=== PATIENT | male | born 1930 | race Caucasian/White ===

== ENCOUNTER 2016-11-07 07:22 | Inpatient (IN) | payer OTHER ==
[~2016-11-07] VITALS: Ht 170.2 cm; Wt 120.2 kg
--- NOTE | ~2016-11-07 | 2DMMODE ---
[facility] [place] [address] 2 D/M-MODE ECHOCARDIOGRAM Name: CHANO FITZGERALD ROSE Room #: 314-P [facility] IN M.R.#: [id number] Admission: 11/08/16 Attend Phys: Willy Laboy Discharge: Date of : [birth year] Date of Service: 11/08/16 1109 Report #: [id number] THIS REPORT FOR: //name// Transthoracic Echocardiography Ordering physician: Mark Ruffin Referring physician: Gregory Malloy Vijay Supervisor Estimator And Drafter: Ronel Brantley Indications/History: Cardiomyopathy. Hx: ISCM, pacemaker,DM, COPD, obesity. BP: 122 / HR: 62bpm Height: 68in Weight: 266.4lb 55 Study data: M-mode, complete 2D, complete spectral Doppler, and color Doppler. Location: Bedside. Routine. Image quality was adequate. The study was technically difficult due to restricted patient mobility and body habitus. The parasternal window was low. 2D measurements Normal Normal LVID ED 56.2mm 36-57 IVS ED 11.6mm 6-11 LVID ES 40.4mm 23-40 LVPW ED 11.9mm 6-11 LA volume 48ml/m2 16-28 AoRoot diam 43.1mm 21-37 index ED LVOT diameter 22mm 18-23 Findings: Left ventricle: The cavity size was normal. Wall thickness was increased in a pattern of mild LVH. Systolic function was normal. The estimated ejection fraction was in the range of 50% to 55%. Wall motion was normal. Right ventricle: The cavity size was severely dilated. Systolic function was reduced. Ventricular septum: Paradoxical motion of septum consistent with a paced rhythm.. Right atrium: The atrium was severely dilated. Pacer wire or catheter noted in right atrium. [facility] [address] [place] [address] 2 D/M-MODE ECHOCARDIOGRAM Name: CHANO FITZGERALD Room #: 314-P [facility] IN M.R.#: [id number] Admission: 11/08/16 Attend Phys: Willy Laboy Discharge: Date of : [birth year] Date of Service: 11/08/16 1109 Report #: [id number] Left atrium: The atrium was severely dilated. Volume index: 48ml/m2 (S). Aortic valve: Mildly sclerotic leaflets. Doppler: There was no stenosis. No regurgitation. Peak velocity: 154.1cm/s (S). Mitral valve: Mildly calcified annulus. Mildly thickened leaflets . Doppler: There was no evidence for stenosis. Moderate regurgitation. Peak E-wave velocity: 112.2cm/s. Peak gradient: 5mm Hg (D). Tricuspid valve: Structurally normal valve. Doppler: There was no evidence for stenosis. Moderate-severe regurgitation. Regurgitant peak velocity: 357cm/s. Peak RV-RA gradient: 51mm Hg (S). Pulmonic valve: Poorly visualized. Doppler: There was no evidence for stenosis. Pericardium: There was no pericardial effusion. Aorta: Aortic root: The aortic root was dilated at the level of the sinuses at 4.3cm. Pulmonary artery: Systolic pressure was estimated to be 65mm Hg. Diastolic function: The study is not technically sufficient to allow evaluation of LV diastolic function due to paced rhythm. Systemic veins: Inferior vena cava: The vessel was severely dilated; respirophasic changes in dimension were absent. Line: Pacemaker leads noted. Conclusions 1. Left ventricle: Systolic function was normal. The estimated ejection fraction was in the range of 50% to 55%. Wall motion was normal. 2. Ventricular septum: Paradoxical motion of septum consistent with a paced rhythm.. 3. Right ventricle: The cavity size was severely dilated. Systolic function was reduced. 4. Aortic valve: Mildly sclerotic leaflets. There was no stenosis. No regurgitation. 5. Mitral valve: Mildly calcified annulus. Mildly thickened leaflets . Moderate regurgitation. 6. Pericardium, extracardiac: There was no pericardial effusion. 7. Pulmonary arteries: Systolic pressure was estimated to be [facility] [address] [place] [address] 2 D/M-MODE ECHOCARDIOGRAM Name: FITZGERALDCHANO Room #: 314-P [facility] IN ..#: [id number] Admission: 11/08/16 Attend Phys: Willy Laboy Discharge: Date of : [birth year] Date of Service: 11/08/16 1109 Report #: [id number] 65mm Hg. 8. Line: Pacemaker leads noted. <ELECTRONICALLY SIGNED> By: Ephraim Mascorro MD, FACC 11/08/16 1206 1109 05 Ephraim Mascorro MD, FACC /[place]
--- NOTE | ~2016-11-07 | H ---
[facility] [place] [address] HISTORY AND PHYSICAL Name: CHANO FITZGERALD Room #: 314-P [facility]..#: [id number] Admission: 11/07/16 Attend Phys: Clayton Romero MD Discharge: Date of : [birth year] Report #: [id number] THIS REPORT FOR: //name// CC: Clayton Guancox monettgoran DATE OF SERVICE: 11/07/2016 CHIEF COMPLAINT: Renal failure and abnormal labwork. HISTORY OF PRESENT ILLNESS: The patient is an 86-year-old male with history of chronic kidney disease stage III, history of ischemic cardiomyopathy, type 2 diabetes, COPD, recent admission at [facility] for cellulitis of the lower extremities, was admitted for abnormal labwork. The patient was discharged on 11/03/2016 to rehab center. The patient was brought in back to [facility] today for an elective angiogram. Lab work showed an elevated creatinine at 2.9. The patient has chronic kidney disease stage III. His creatinine on 11/03/2016 was 1.4. The patient has been taking torsemide and metolazone. At the rehab center, he was also on IV vancomycin through a PICC line for cellulitis of the lower extremities. The patient is sleepy because he had to wake up at 4:00 a.m. and come to the hospital, but he just wakes up and answers questions. He is awake and alert and oriented x 3. He denies any complaint other than pain in his lower extremities. PAST MEDICAL HISTORY: Significant for hypertension, ischemic cardiomyopathy, last EF was 40%. He has a history of chronic lymphedema, diabetes mellitus, cellulitis of the lower extremities, chronic kidney disease, obesity, status post permanent pacemaker, sleep apnea, coronary artery disease, atrial fibrillation, spinal cord stimulator, bladder cancer, history of MRSA infection in the past, urinary incontinence, history of pneumonia in November 2014 and history of acute blood loss anemia in the past. SOCIAL HISTORY: He is a former smoker, no active smoking at present. No alcohol abuse or illicit drug abuse. FAMILY HISTORY: Significant for hypertension and diabetes. ALLERGIES: He is allergic to TAPE, SOAP, PENICILLIN, SULFA, POVIDONE-IODINE and LATEX. Please look at the nursing documentation. HOME MEDICATIONS: Reviewed. He is on insulin NovoLog and Levemir. He was also on torsemide, metolazone and vancomycin. Please look at the nursing documentation. Home meds were reviewed. [address] [address] HISTORY AND PHYSICAL Name: CHANO FITZGERALD Room #: 314-P [facility]#: [id number] Admission: 11/07/16 Attend Phys: Clayton Romero MD Discharge: Date of : [birth year] Report #: [id number] REVIEW OF SYSTEMS: CONSTITUTIONAL: No change in his weight. No fever or chills. EYES: No change in vision. THROAT: Denies any sore throat. CARDIOVASCULAR: No chest pain, dizziness or palpitations. RESPIRATORY: No cough or expectoration. GASTROINTESTINAL: No nausea or vomiting. GENITOURINARY: No dysuria or hematuria. He does have a Khalil catheter that was placed during his previous admission. NEUROLOGIC: Complains of generalized weakness, no focal weakness. SKIN: He does have chronic ulcers in his lower extremities. He also has chronic lower extremity swelling. The 12-point review of system is negative other than the positives and negatives dictated in the history of present illness and the review of system. PHYSICAL EXAMINATION: VITAL SIGNS: Blood pressure is 120/60, heart rate of 60 per minute and afebrile. GENERAL: The patient is sleepy, but he does wake up. He is awake and alert and oriented x 3. HEENT: Pupils around 2 mm, reacting to light. Throat, he has some mildly dry oral mucosa. NECK: Supple, no JVD, no bruit, no lymphadenopathy. CARDIOVASCULAR SYSTEM: S1 and S2, negative S3, no murmur. CHEST: Bilateral air entry present. Clear on auscultation. ABDOMEN: Soft, bowel sounds present, no mass, no organomegaly and no tenderness. EXTREMITIES: Periphery has chronic 2 to 2+ edema bilaterally. There is mild erythema on the right leg. He has also pressure ulcers on the back of his right leg. Dorsalis pedis 1+ on the left side, feeble on the right-side. NEUROLOGICAL: He is able to move all 4 extremities. DATA: Labs reviewed. White count of 6.9, hemoglobin is 10 and platelet count is 189. Chemistry showed a potassium of 5.3. Creatinine is 2.9. Blood glucose was 149. ASSESSMENT AND PLAN: 1. Acute kidney injury. Likely a combination of torsemide/metolazone/vancomycin. We will hold off on diuretic at present. The patient clinically appears a little dehydrated. We will start him on gentle IV fluids. We will obtain an echocardiogram to evaluate his left ventricular function too. Nephrology has been consulted. We will order a urine sodium and also a renal ultrasound. The patient does have an indwelling Khalil catheter from his previous admission. We will leave it at present to monitor his INRs closely. We need to probably discontinue his Khalil catheter prior to discharge. We will also check on a UA with culture. [address] [address] HISTORY AND PHYSICAL Name: CHANO FITZGERALD Room #: 314-P [facility]#: [id number] Admission: 11/07/16 Attend Phys: Clayton Romero MD Discharge: Date of : [birth year] Report #: [id number] 2. History of cardiomyopathy. Last ejection fraction a couple of years ago was 40%, we will repeat his echocardiogram. 3. Obesity. 4. History of congestive heart failure. 5. Chronic kidney disease stage 3. 6. Sleep apnea, on CPAP. 7. Lower extremity swelling and cellulitis secondary to chronic lymphedema. We will consult Infectious Disease and Dr. Villeda from wound care. 8. Deep vein thrombosis prophylaxis. He will be placed on heparin subcutaneously for deep vein thrombosis prophylaxis. Treatment plan has been explained to the patient in detail. 9. Diabetes. We will place him on sliding scale insulin at present. We will consider restarting him back on the Levemir tomorrow. 10. Hypertension. We will hold off on Coreg at present because of his borderline low blood pressure. Treatment plan has been explained to the patient in detail. <ELECTRONICALLY SIGNED> By: Mark Ruffin MD 11/07/16 1419 1304 1340 Mark Ruffin MD /nt
--- NOTE | ~2016-11-07 | HC ---
[facility] [place] [address] CONSULTATION Name: CHANO FITZGERALD Room #: 314-P ADM IN M.R.#: [id number] Admission: 11/08/16 Attend Phys: Mark Ruffin MD Discharge: Date of : [birth year] Report #: [id number] THIS REPORT FOR: //name// CC: Clayton Ruffin DATE OF SERVICE: 11/07/2016 ATTENDING PHYSICIAN: Mark Ruffin M.D. REASON FOR CONSULTATION: Antibiotic management, question cellulitis leg. HISTORY OF PRESENT ILLNESS: The patient is an 86-year-old white man, known to me from previous hospitalization at [facility], who was scheduled to have an angiogram by Dr. Wooten today. He underwent evaluation of renal function and found to have elevation of creatinine of 2.9 mg/dL. Angiogram canceled and the patient admitted. He is evaluated by nephrology services. The patient is alert, but mildly confused and not very clear mind to give a clearcut history regarding recurrent events. The patient recently discharged from [facility] to a local assisted, where he was receiving treatment with ascorbic acid, zinc sulfate, vancomycin 750 mg IV every 12 hours, gabapentin, colchicine, oxycodone, allopurinol 100 mg b.i.d., diclofenac (Voltaren gel) 1% topical q.i.d. p.r.n., sennoside, cyanocobalamin, cholecalciferol, ferrous sulphate, lansoprazole, guaifenesin, ____, insulin glargine, simvastatin, potassium chloride, triamcinolone topical, spironolactone 25 mg daily, albuterol, metolazone 5 mg orally weekly, carvedilol, torsemide 20 mg b.i.d. and tamsulosin. PAST MEDICAL HISTORY: Bladder cancer. Atrial fibrillation. Congestive heart failure and sick sinus syndrome, status post permanent pacemaker. Osteoarthritis. Bilateral total knee replacement. Coronary artery disease. Diabetes mellitus, gastroesophageal reflux, questionable rheumatoid arthritis, obstructive sleep apnea, rosacea, stasis dermatitis and cellulitis of legs. DRUG ALLERGIES: The patient is allergic to PENICILLIN, SULFA, POVIDONE-IODINE, LATEX and SOAP. MEDICATIONS: The patient is currently on pantoprazole 40 mg daily, ascorbic acid 500 mg daily, zinc sulfate 220 mg daily, cholecalciferol 400 units daily, heparin 5000 units b.i.d., allopurinol 100 b.i.d., tamsulosin 0.4 mg b.i.d., insulin aspart taper sliding scale, gabapentin 100 mg t.i.d., p.r.n. glucose and glucagon, oxycodone immediate-release 5 mg q.6 hours p.r.n., sennoside 2 tablets daily, ferrous sulfate 140 mg daily, receiving sodium chloride at 1000 mL every 12 hours intraven[address] [address] CONSULTATION Name: CHANO FITZGERALD ROSE Room #: 314-P [facility] IN M.R.#: [id number] Admission: 11/08/16 Attend Phys: Mark Ruffin MD Discharge: Date of : [birth year] Report #: [id number] SOCIAL HISTORY: See H and P. FAMILY HISTORY: See H and P. REVIEW OF SYSTEMS: As above. PHYSICAL EXAMINATION: GENERAL: A chronically ill-appearing man, mildly somnolent, not toxic. VITAL SIGNS: Temperature 97.9, pulse 62, respirations 20 and BP 120/60. HEENT: Within range. NECK: Supple. LUNGS: Basilar crackles. HEART: S1, S2. No gallop. ABDOMEN: Soft. No masses or megaly. EXTREMITIES: Stasis dermatitis, legs and question superficial ulcerations with no cellulitis, right leg. Surgical scar of total knee replacement. NEUROLOGIC: Grossly within normal limits. LABORATORY DATA: Sodium 136, potassium 5.3, BUN 74, creatinine 2.9 and glucose 149. Protein electrophoresis pending. WBC 6.9, hemoglobin 10 grams per dL and platelets 189,000. MRSA screen positive on previous hospitalization. ASSESSMENT: 1. Stasis dermatitis, question cellulitis, legs. 2. Positive methicillin-resistant Staphylococcus aureus screen. 3. Acute kidney injury. Question etiology. 4. Coronary artery disease. 5. Sick sinus syndrome, status post permanent pacemaker. SUGGESTIONS: At present, the patient is nontoxic looking and not septic. We will not dose an antibiotic. We will obtain a random vancomycin level, suspect it will be high. We will continue local wound care per wound care team and isolation for MRSA. Dr. Ruffin, thank you for requesting my suggestion. <ELECTRONICALLY SIGNED> By: Juan M Mahmood MD 11/08/16 1108 1404 1453 Juan M Mahmood MD /nt
[~2016-11-07 07:22] MED LIST: ACCUPRIL; ACCUPRIL40 MG PO; ACETAMINOPHEN325 M1 PO; ALBUTEROL NEB INH; ALBUTEROL2.5 MG/31 INH; ALDACTONE25 MG PO; ALLERGY RELIEF180 MG PO; ALLOPURINOL 10100 M1 PO; ALLOPURINOL 10100 M2 PO; ANTIFUNGAL15 G1 TP; ASPIR 8181 MG PO; AZACTAM 1 GM VIA1 G1 IJ; AZITHROMYCIN 2250 MG PO; B COMPLEX1 EACH PO; BACLOFEN 10MG T10 MG PO; BASE, PCCA RAPID1 GM; BENZONATATE200 MG PO; BISAC-EVAC10 MG; BISACODYL SUPP10 MG RE; BYETTA PEN 11 PENINJ SQ; CALMOSEPTINE O3.5 GM; CALMOSEPTINE O3.5 GM TOP; CALMOSEPTINE O3.5 GM TP; CARVEDILOL12.5 MG PO; CARVEDILOL25 MG PO; CATHFLO ACT2 MG/VIAL; CEPACOL SORE T1 EAC7; CEPHALEXIN 500500 M1 PO; CIPRO250 M1; CLARINEX5 MG PO; CLARITIN10 MG PO; CLINDAMYCIN HC150 MG PO; CLOTRIMAZOLE-BE15 GM TOP; COLACE 100 MG100 MG PO; COLACE100 MG PO; COLCHICINE0.6 M1 PO; COLCHICINE0.6 MG PO; COMPOUND CREAM; COREG; COREG PO; COREG12.5 MG PO; CORICIDIN HBP1 EAC2 PO; CORICIDIN HBP1 EACH PO; COUMADIN; COUMADIN7.5 MG PO; CYMBALTA30 MG PO; DEMADEX20 MG PO; DIPHENHYDRAMINE25 M3 PO; DIPHENOXYLATE/A1 TA1 GT; DOXYCYCLINE 10100 M1 PO; DOXYCYCLINE 10100 MG PO; DOXYCYCLINE HYC20 MG PO; DUONEB 2.5-0.5 M3 ML; DUONEB 2.5-0.5 M3 ML INH; ENDOCET 5-3251 EACH PO; ENULOSE10 GM/15 M PO; EXELON1 EACH TRANSDERM; FENOFIBRATE200 MG PO; FERROUS SULFAT134 M1 PO; FERROUS SULFAT140 MG PO; FISH OIL 1,001000 M1 PO; FISH OIL 1,001000 M2 PO; FLOMAX0.4 MG PO; FLONASE 0.05%50 MCG NASAL; FUROSEMIDE 20 M20 M1 PO; GABAPENTIN100 MG PO; GENTAMICIN 0.1%15 G2; GLYCOLAX POWDER17 G1 OR; HUMALOG100 UNIT/1; HUMALOG100 UNIT/1 SQ; HYDROCODON-ACE1 EAC5 PO; HYDROCODON-ACE1 EAC7 PO; IRON325 PO; JALYN 0.5-0.41 EACH PO; K-DUR 20 MEQ T20 MEQ PO; K-DUR10 ME1 PO; KLOR-CON OR; LANSOPRAZOLE30 MG PO; LANTUS SQ; LANTUS SUBQ; LANTUS100 UNIT/M SUBQ; LASIX 20 MG TAB20 MG PO; LASIX 40 MG TAB40 M1 PO; LASIX 80 MG TAB80 MG PO; LASIX PO; LEVAQUIN 500 M500 M1 PO; LEVAQUIN 500 M500 M2 PO; LEVAQUIN 750 M750 MG PO; LEVEMIR100 UNIT/1 SUBQ; LIDODERM 5%1 PATC1 TRANSDERM; LOVENOX SQ; MACRODANTIN50 MG PO; MAGNES PO; MAGNESIUM100 MG PO; MAGNESIUM400 MG PO; MAGOX 400400 MG PO; METOLAZONE 5 MG5 MG PO; METROGEL; METROGEL TOP; METROGEL55 GM TOP; METROGEL55 GM TP; METROGEL60 GM; METRONIDAZOLE55 GM; MIRALAX17 GM PO; MS CONTIN15 MG PO; MUCINEX TA600 MG/TAB PO; MULTI VITAMIN1 EACH; MULTIVITAMINS PO; MYRBETRIQ25 MG PO; MYRBETRIQ50 MG PO; NASACORT INH; NASACORT10.8 ML NASAL; NASACORT10.8 ML NS; NASALCORT INH; NASONEX17 GM NS; NEURONTIN 300300 M1 PO; NORCO 5-325 TA1 EACH PO; NOVOLOG100 UNIT/1; NOVOLOG100 UNIT/1 SQ; NOVOLOG100 UNIT/1 SUBLING; NOVOLOG100 UNIT/1 SUBQ; NYSTATIN15 GM; OMEGA-31000 MG PO; ORAXYL20 MG PO; ORBACTIV400 MG IV; OXYCODONE HCL 55 MG PO; OXYCODONE-ACET1 EACH PO; POTASSIUM20 PO; POTASSIUM99 M1 PO; PREDNISONE 10 M10 MG PO; PREVACID 30MG C30 M1 PO; PREVACID30 MG PO; PROMETHAZINE/C118 ML PO; QUINAPRIL 20 MG20 MG PO; QUINAPRIL HCL20 MG PO; SALINE NASAL SP30 ML NASAL; SENNA PO; SENNA8.6 MG PO; SENOKOT-S1 TA1 PO; SILVADENE20 GM TP; SIMVASTATIN40 MG PO; SINGULAIR 10 MG10 M1 PO; SODIUM CHLORID250 ML IV; SODIUM CHLORIDE50 M4 IV; SPIRONOLACTONE25 M1 PO; STOOL SOFTENER1 EAC2 PO; TIZANIDINE HCL 22 M1 PO; TORSEMIDE20 MG PO; TOVIAZ4 MG PO; TRAMADOL 50 MG50 MG PO; TRAMADOL HCL50 MG PO; TRIAMCINOLONE A15 G1 TOP; TRIAMCINOLONE A80 G2; TRIAMCINOLONE A80 GM TOP; TRIAMCINOLONE16.5 GM NASAL; TRICOR; TROSPIUM CHLORI20 MG PO; TUMERIC PO; TYLENOL325 MG PO; VANCO 750750 MG/250 IV; VANCOMYCIN HCL 11 G2 IV; VASCULERA630 MG PO; VENTOLIN HFA 1818 GM; VENTOLIN HFA 1818 GM INH; VENTOLIN HFA INH8 GM IH; VESICARE; VESICARE 5 MG TA5 M1 PO; VESICARE 5 MG TA5 MG PO; VESICARE10 M1 PO; VICODIN 5-5001 EACH PO; VICTOZA0.6 MG/0.1 PO; VITAMIN B12-FO1 EAC1 PO; VITAMIN B122500 MC1 PO; VITAMIN D 3 PO; VITAMIN D 5050000 I1 PO; VITAMIN D-32000 UNIT; VITAMIN D1000 UNI1 PO; VITAMIN D31000 UNI2 PO; VITAMIN D3400 UNI1 PO; VITAMIN D3400 UNIT PO; VOLTAREN GEL 1100 G1 TOP; VOLTAREN GEL 1100 G2 TOP; VYTORIN; VYTORIN 10-401 EACH PO; WARFARIN; XARELTO15 MG PO; XARELTO20 MG PO; ZETIA10 MG PO; novalog
[2016-11-07 08:14] VITALS: BP 95/39
[2016-11-07 08:28] LABS: HEMATOCRIT 31.4 % (42.0-52.0); MCH 31.2 pg (26.0-34.0); MCHC 31.7 % (28.0-37.0); MCV 98.3 fL (80.0-100.0); RBC 3.2 mil/uL (4.50-6.00); RDW 18.1 % (10.5-14.5); WBC 6.9 thou/uL (4.0-11.0)
[2016-11-07] MEDS ORDERED: ORAZINC220 MG PO (08:33)
[2016-11-07] MEDS ORDERED: VITAMINC500 PO (08:35)
[2016-11-07 08:45] LABS: CALCIUM 8.7 mg/dL (8.5-10.1); CREATININE 2.9 mg/dL (0.6-1.3); POTASSIUM 5.3 mmol/L (3.5-5.1)
[2016-11-07 10:53] VITALS: BP 120/60
[2016-11-07 13:57] LABS: URINE BILIRUBIN NEGATIVE (Negative); URINE BLOOD 1+ (Negative); URINE COLOR YELLOW; URINE GLUCOSE-RANDOM* NEGATIVE (Negative); URINE KETONES NEGATIVE (Negative); URINE LEUKOCYTES-REFLEX 2+ (Negative); URINE PROTEIN (DIPSTICK) NEGATIVE (Negative); URINE UROBILINOGEN 0.2 E.U./dl (0.2-1.0)
[2016-11-07 13:59] LABS: CASTS None Seen /LPF (None Seen); SQUAMOUS None Seen /LPF (0-3)
[2016-11-07 14:00] LABS: CRYSTALS None Seen /LPF (None Seen); URINE RBC None Seen /HPF (0-2); URINE WBC-REFLEX 0-5 Rare /HPF (0-5)
[2016-11-07 16:20] VITALS: BP 102/46
[2016-11-07 20:00] VITALS: BP 101/46
[2016-11-08] VITALS: BP 111/48
[2016-11-08 06:54] LABS: ABSOLUTE NEUTROPHILS 4.2 thou/uL (1.4-8.2); BASOPHILS 0.9 % (0.0-2.0); EOSINOPHILS 4.2 % (0.0-3.0); HEMATOCRIT 30.2 % (42.0-52.0); HEMOGLOBIN 9.7 gm/dL (14.0-18.0); LYMPHOCYTES 18.8 % (24.0-44.0); MCH 31.8 pg (26.0-34.0); MCHC 32.3 % (28.0-37.0); MCV 98.6 fL (80.0-100.0); PLATELET COUNT 209 thou/uL (150-400); POLYS 64.1 % (36.0-66.0); RBC 3.06 mil/uL (4.50-6.00); RDW 18.3 % (10.5-14.5); WBC 6.6 thou/uL (4.0-11.0)
[2016-11-08 06:55] LABS: MANUAL DIFF NO
[2016-11-08 07:07] LABS: CALCIUM 8.4 mg/dL (8.5-10.1); CREATININE 2.8 mg/dL (0.6-1.3); POTASSIUM 5.3 mmol/L (3.5-5.1)
[2016-11-08 08:41] VITALS: BP 122/55
[2016-11-08 11:55] VITALS: BP 124/55
[2016-11-09 04:00] VITALS: BP 100/38
[2016-11-09 06:29] LABS: CALCIUM 8.2 mg/dL (8.5-10.1); CREATININE 2.8 mg/dL (0.6-1.3); POTASSIUM 5.4 mmol/L (3.5-5.1)
[2016-11-09 08:40] VITALS: BP 97/47
[2016-11-09 15:07] LABS: A/G RATIO 1.2 (0.7-1.7); ALBUMIN 2.8 g/dL (2.9-4.4); ALPHA 1 0.3 g/dL (0.0-0.4); ALPHA 2 0.8 g/dL (0.4-1.0); BETA 0.7 g/dL (0.7-1.3); GAMMA 0.5 g/dL (0.4-1.8); M-SPIKE Not Observed g/dL (Not Observed)
[2016-11-09 17:50] VITALS: BP 105/42
[2016-11-09 22:30] VITALS: BP 118/52
[2016-11-10 05:37] VITALS: BP 127/58
[2016-11-10 07:30] VITALS: BP 121/96
[2016-11-10 07:58] LABS: ALBUMIN 2.3 g/dL (3.4-5.0); CALCIUM 8.7 mg/dL (8.5-10.1); CREATININE 2.7 mg/dL (0.6-1.3); POTASSIUM 4.8 mmol/L (3.5-5.1)
[2016-11-10 11:50] VITALS: BP 107/44
[2016-11-10 17:40] VITALS: BP 118/54
[2016-11-10 19:54] VITALS: BP 120/50
[2016-11-11 02:53] VITALS: BP 146/57
[2016-11-11 06:19] LABS: ALBUMIN 2.4 g/dL (3.4-5.0); CREATININE 2.4 mg/dL (0.6-1.3); PHOSPHORUS 5.1 mg/dL (2.5-4.9); POTASSIUM 4.5 mmol/L (3.5-5.1)
[2016-11-11 15:45] VITALS: BP 139/60
[2016-11-11 20:30] VITALS: BP 132/57
[2016-11-12 03:59] VITALS: BP 132/51
[2016-11-12 06:54] LABS: ALBUMIN 2.6 g/dL (3.4-5.0); CALCIUM 8.9 mg/dL (8.5-10.1); CREATININE 2.3 mg/dL (0.6-1.3); PHOSPHORUS 5.4 mg/dL (2.5-4.9); POTASSIUM 4.7 mmol/L (3.5-5.1)
[2016-11-12 08:12] VITALS: BP 142/49
[2016-11-12 11:37] VITALS: BP 120/49
[2016-11-12 15:35] VITALS: BP 117/48
[2016-11-12 21:04] VITALS: BP 124/40
[2016-11-13 04:25] VITALS: BP 123/53
[2016-11-13 07:44] LABS: CALCIUM 9.4 mg/dL (8.5-10.1); CREATININE 2.2 mg/dL (0.6-1.3); POTASSIUM 4.7 mmol/L (3.5-5.1)
[2016-11-13 08:00] VITALS: BP 137/54
[2016-11-13 16:00] VITALS: BP 111/45
[2016-11-13 20:47] VITALS: BP 94/42
[2016-11-14 04:55] VITALS: BP 155/56
[2016-11-14 07:49] VITALS: BP 112/52
[2016-11-14 08:21] LABS: HEMATOCRIT 31.6 % (42.0-52.0); MCH 31.5 pg (26.0-34.0); MCHC 31.6 % (28.0-37.0); MCV 99.7 fL (80.0-100.0); RBC 3.17 mil/uL (4.50-6.00); RDW 18.4 % (10.5-14.5); WBC 6.4 thou/uL (4.0-11.0)
[2016-11-14 08:31] LABS: ALBUMIN 2.2 g/dL (3.4-5.0); CREATININE 2.3 mg/dL (0.6-1.3); PHOSPHORUS 5.3 mg/dL (2.5-4.9); POTASSIUM 4.9 mmol/L (3.5-5.1)
[2016-11-14 14:59] VITALS: BP 109/47
[2016-11-14 20:20] VITALS: BP 110/50
[2016-11-15 03:50] VITALS: BP 119/40
[2016-11-15 06:24] LABS: ABSOLUTE NEUTROPHILS 3.8 thou/uL (1.4-8.2); BASOPHILS 0.9 % (0.0-2.0); EOSINOPHILS 2.4 % (0.0-3.0); HEMATOCRIT 32.2 % (42.0-52.0); HEMOGLOBIN 10.1 gm/dL (14.0-18.0); LYMPHOCYTES 27.7 % (24.0-44.0); MCH 31.1 pg (26.0-34.0); MCHC 31.4 % (28.0-37.0); MCV 99.1 fL (80.0-100.0); MONOCYTES 10.8 % (1.0-8.0); PLATELET COUNT 257 thou/uL (150-400); POLYS 58.2 % (36.0-66.0); RBC 3.25 mil/uL (4.50-6.00); RDW 18.6 % (10.5-14.5); WBC 6.5 thou/uL (4.0-11.0)
[2016-11-15 06:27] LABS: ALBUMIN 2.3 g/dL (3.4-5.0); CALCIUM 9.1 mg/dL (8.5-10.1); CREATININE 2.4 mg/dL (0.6-1.3); PHOSPHORUS 5.5 mg/dL (2.5-4.9); POTASSIUM 4.9 mmol/L (3.5-5.1)
[2016-11-15 06:35] LABS: MANUAL DIFF NO
[2016-11-15 09:06] VITALS: BP 104/52
[2016-11-15 12:09] VITALS: BP 114/80
[2016-11-15 17:39] VITALS: BP 98/44
[2016-11-15 20:00] VITALS: BP 113/54
[2016-11-16 02:35] VITALS: BP 110/60
[2016-11-16 05:46] LABS: ABSOLUTE NEUTROPHILS 3.2 thou/uL (1.4-8.2); BASOPHILS 0.2 % (0.0-2.0); HEMATOCRIT 30.8 % (42.0-52.0); HEMOGLOBIN 9.6 gm/dL (14.0-18.0); LYMPHOCYTES 27.2 % (24.0-44.0); MCH 31.1 pg (26.0-34.0); MCHC 31.1 % (28.0-37.0); MCV 100.1 fL (80.0-100.0); MONOCYTES 5.8 % (1.0-8.0); PLATELET COUNT 229 thou/uL (150-400); POLYS 66.8 % (36.0-66.0); RBC 3.08 mil/uL (4.50-6.00); RDW 18.6 % (10.5-14.5); WBC 4.8 thou/uL (4.0-11.0)
[2016-11-16 05:49] LABS: MANUAL DIFF NO
[2016-11-16 06:01] LABS: CALCIUM 8.6 mg/dL (8.5-10.1); CREATININE 2.5 mg/dL (0.6-1.3); POTASSIUM 5.5 mmol/L (3.5-5.1)
[2016-11-16 08:00] VITALS: BP 131/59
[2016-11-16 16:00] VITALS: BP 114/55
[2016-11-16 20:09] VITALS: BP 125/56
[2016-11-17 04:56] VITALS: BP 127/57
[2016-11-17 06:16] LABS: ABSOLUTE NEUTROPHILS 2.7 thou/uL (1.4-8.2); BASOPHILS 0.4 % (0.0-2.0); HEMATOCRIT 31.5 % (42.0-52.0); HEMOGLOBIN 10.1 gm/dL (14.0-18.0); LYMPHOCYTES 28.7 % (24.0-44.0); MCH 31.2 pg (26.0-34.0); MCV 97.5 fL (80.0-100.0); MONOCYTES 4.3 % (1.0-8.0); PLATELET COUNT 234 thou/uL (150-400); POLYS 66.6 % (36.0-66.0); RBC 3.23 mil/uL (4.50-6.00); WBC 4.1 thou/uL (4.0-11.0)
[2016-11-17 06:26] LABS: ALBUMIN 2.5 g/dL (3.4-5.0); CALCIUM 8.8 mg/dL (8.5-10.1); CREATININE 2.4 mg/dL (0.6-1.3); PHOSPHORUS 5.8 mg/dL (2.5-4.9); POTASSIUM 5.2 mmol/L (3.5-5.1)
[2016-11-17 06:36] LABS: MANUAL DIFF NO
[2016-11-17 08:23] VITALS: BP 152/74
[2016-11-17 16:00] VITALS: BP 122/54
[2016-11-17 20:00] VITALS: BP 123/47
[2016-11-18 04:00] VITALS: BP 124/45
[2016-11-18 07:49] VITALS: BP 110/47
[2016-11-18 12:04] VITALS: BP 108/45
[2016-11-18 15:22] VITALS: BP 118/55
[2016-11-18 20:28] VITALS: BP 121/52
[2016-11-19 03:05] VITALS: BP 127/53
[2016-11-19 05:28] LABS: ABSOLUTE NEUTROPHILS 3.5 thou/uL (1.4-8.2); BASOPHILS 0.5 % (0.0-2.0); HEMATOCRIT 31.2 % (42.0-52.0); HEMOGLOBIN 9.8 gm/dL (14.0-18.0); LYMPHOCYTES 22.6 % (24.0-44.0); MCH 31.2 pg (26.0-34.0); MCHC 31.6 % (28.0-37.0); MCV 98.8 fL (80.0-100.0); MONOCYTES 4.8 % (1.0-8.0); PLATELET COUNT 226 thou/uL (150-400); POLYS 72.1 % (36.0-66.0); RBC 3.15 mil/uL (4.50-6.00); RDW 17.8 % (10.5-14.5); WBC 4.8 thou/uL (4.0-11.0)
[2016-11-19 05:34] LABS: MANUAL DIFF NO
[2016-11-19 05:38] LABS: ALBUMIN 2.6 g/dL (3.4-5.0); CALCIUM 8.5 mg/dL (8.5-10.1); CREATININE 2.2 mg/dL (0.6-1.3); PHOSPHORUS 6.2 mg/dL (2.5-4.9); POTASSIUM 4.7 mmol/L (3.5-5.1)
[2016-11-19 08:30] VITALS: BP 122/56
[2016-11-19 12:15] VITALS: BP 120/67
[2016-11-19] MEDS ORDERED: CARVEDILOL3.125 MG PO (15:11)
[2016-11-19] MEDS ORDERED: HUMALOG100 UNIT/1 SUBQ (15:11)
[2016-11-19] MEDS ORDERED: LEVAQUIN 500 M500 M9 PO (15:11)
[2016-11-19] MEDS ORDERED: OXYCODONE HCL 55 MG PO (15:11)
[2016-11-19] MEDS ORDERED: GABAPENTIN 100100 MG PO (15:11)
[2016-11-19] MEDS ORDERED: DEMADEX 2020 MG/1 TA PO (15:11)
[2016-11-19] MEDS ORDERED: LANTUS100 UNIT/M SUBQ (15:11)
[2016-11-19 21:40] VITALS: BP 124/52
[2016-11-20 00:40] VITALS: BP 122/94
[2016-11-20 05:30] VITALS: BP 119/53
[2016-11-20 06:53] LABS: ALBUMIN 2.6 g/dL (3.4-5.0); CALCIUM 8.6 mg/dL (8.5-10.1); CREATININE 1.9 mg/dL (0.6-1.3); PHOSPHORUS 5.3 mg/dL (2.5-4.9); POTASSIUM 3.9 mmol/L (3.5-5.1)
[2016-11-20 18:38] VITALS: BP 116/44
[2016-11-20 19:07] VITALS: BP 112/45
[2016-11-21 03:00] VITALS: BP 133/48
[2016-11-21 08:00] VITALS: BP 126/48
[2016-11-21 16:00] VITALS: BP 124/50
[2016-11-21 19:25] VITALS: BP 116/45
[2016-11-22 03:52] VITALS: BP 118/50
[2016-11-22 08:00] VITALS: BP 144/41
[2016-11-22 12:18] VITALS: BP 144/41
[2016-11-22] MEDS ORDERED: HEPARIN SO5000 UNIT/ SUBQ (14:50)
[2016-11-22] MEDS ORDERED: ZINC SULFATE 2220 MG PO (14:50)
[2016-11-22] MEDS ORDERED: PREDNISONE 10 M10 M1 PO (14:50)
[2016-11-22] MEDS ORDERED: LANTUS100 UNIT/M SUBQ (14:58)
[2017-01-06] MEDS ORDERED: DOXYCYCLINE 10100 MG PO (05:00)
[2017-01-06] MEDS ORDERED: COLACE100 MG PO (05:01)
[2017-01-06] MEDS ORDERED: ROBITUSSIN DM118 ML PO (05:02)
[2017-01-06] MEDS ORDERED: POTASSIUM20 PO (05:02)
== END 2016-11-22 18:07 | DRG 682 ==
LOC: CATH 07:22 → 3N 10:41 → 4N 11-20 04:47
PROVIDERS: Hospitalist; Internal Medicine; Internal Medicine Endocrinology, Diabetes & Metabolism; Internal Medicine Nephrology; Nuclear Medicine Nuclear Cardiology
PROC: 05HB33Z Insertion of Infusion Device into Right Basilic Vein, Percutaneous Approach (ICD-10-PCS; principal; 2016-11-13)
PROC: 5A09457 Assistance with Respiratory Ventilation, 24-96 Consecutive Hours, Continuous Positive Airway Pressure (ICD-10-PCS; 2016-11-14)
DX: N17.9 Acute kidney failure, unspecified (principal); J96.01 Acute respiratory failure with hypoxia; N39.0 Urinary tract infection, site not specified; E46 Unspecified protein-calorie malnutrition; I42.9 Cardiomyopathy, unspecified; I13.0 Hypertensive heart and chronic kidney disease with heart failure and stage 1 through stage 4 chronic kidney disease, or unspecified chronic kidney disease; L03.116 Cellulitis of left lower limb; L03.115 Cellulitis of right lower limb; Z68.41 Body mass index [BMI] 40.0-44.9, adult; T50.1X5A Adverse effect of loop [high-ceiling] diuretics, initial encounter; T50.2X5A Adverse effect of carbonic-anhydrase inhibitors, benzothiadiazides and other diuretics, initial encounter; T36.8X5A Adverse effect of other systemic antibiotics, initial encounter; N18.3 Chronic kidney disease, stage 3 (moderate); E66.01 Morbid (severe) obesity due to excess calories; I50.9 Heart failure, unspecified; E11.22 Type 2 diabetes mellitus with diabetic chronic kidney disease; B96.4 Proteus (mirabilis) (morganii) as the cause of diseases classified elsewhere; E11.51 Type 2 diabetes mellitus with diabetic peripheral angiopathy without gangrene; L89.892 Pressure ulcer of other site, stage 2; E87.5 Hyperkalemia; I87.2 Venous insufficiency (chronic) (peripheral); I49.5 Sick sinus syndrome; D64.9 Anemia, unspecified; I25.10 Atherosclerotic heart disease of native coronary artery without angina pectoris; Z91.040 Latex allergy status; Z88.8 Allergy status to other drugs, medicaments and biological substances; Z88.0 Allergy status to penicillin; Z88.2 Allergy status to sulfonamides; Z91.013 Allergy to seafood; Z82.49 Family history of ischemic heart disease and other diseases of the circulatory system; Z83.3 Family history of diabetes mellitus; Z95.0 Presence of cardiac pacemaker